=== PATIENT | female | born 1955 | race Caucasian/White ===

== ENCOUNTER 2017-07-17 10:57 | Outpatient (CLI) | payer OTHER | END 2017-07-17 10:58 | disposition home or self-care (01) | LOC: BICMAMMO 10:57 | PROVIDERS: ATTEND Family Medicine | DX: Z12.31 Encounter for screening mammogram for malignant neoplasm of breast (principal) | CPT/HCPCS: 77063; 77067 ==

== ENCOUNTER 2018-09-01 13:49 | Outpatient (CLI) | payer OTHER ==
--- NOTE | 2018-09-01 14:35 | ULT ---
Thyroid ultrasound: 09/01/2018 COMPARISON: 12/07/2012 HISTORY: Thyroid nodules TECHNIQUE: Multiplanar grayscale sonographic imaging of the thyroid gland obtained. FINDINGS: Thyroid isthmus measures 3 mm in AP dimension. The left lobe of the thyroid gland is surgic ally absent. The right lobe measures 3.5 x 2.1 x 1.2 cm. 3 thyroid nodules are noted within the right lobe of the thyroid gland, not discretely visualized on the prior examination. This includes a 9 x 7 x 10 mm heterogeneously hypoechoic solid nodule within the inferior aspect of the right lobe, a superior anterior cyst measuring 3 mm, and a heterogeneously hypoechoic nodule measuring approximately 4 mm. IMPRESSION: TI-RADS category 3, mildly suspicious. Given size of nodules less than 1.5 cm, no additio nal follow-up is required.
== END 2018-09-01 13:50 | disposition home or self-care (01) ==
LOC: BICULT 13:49
PROVIDERS: ATTEND Specialist
DX: E04.2 Nontoxic multinodular goiter (principal)
CPT/HCPCS: 36415; 76536; 84439; 84443; 84481

== ENCOUNTER 2019-11-01 14:38 | Outpatient (CLI) | payer MEDICARE ==
--- NOTE | 2019-11-01 15:15 | RAD ---
EXAM: XR Lumbar Spine 2 Or 3 View PROVIDED CLINICAL HISTORY: Lumbar disc disease, lumbar spondylosis. Patient complains of low back pain for 6 weeks. No known inj ury. COMPARISON: None FINDINGS: There are 5 nonrib-bearing lumbar-type vertebral bodies. There is mild right convex rotoscoliosis of the lumbar spine. Facet degenerative changes are seen on the left at the L4-5 level. The vertebral body heights are within normal limits. No fracture or subluxation is seen involving the lumbar spine. Vascular calcifications are seen overlying the upper abdomen. IMPRESSION: 1. Right convex scoliosis lumbar spine with facet degenerative changes lower lumbar spine. 2. No fracture or subluxation is seen.
--- NOTE | 2019-11-01 15:15 | RAD ---
Exam: 3 views of the sacroiliac joints HISTORY: Bilateral sacroiliitis. FINDINGS: Sacral joints are patent and symmetric. Visualized sacral ala are preserved. No fracture. IMPRESSION: No acute abnormality.
== END 2019-11-01 14:39 | disposition home or self-care (01) ==
LOC: BICRAD 14:38
PROVIDERS: ATTEND Family Medicine
DX: M46.1 Sacroiliitis, not elsewhere classified (principal); G89.4 Chronic pain syndrome; M51.9 Unspecified thoracic, thoracolumbar and lumbosacral intervertebral disc disorder; M47.816 Spondylosis without myelopathy or radiculopathy, lumbar region; M41.86 Other forms of scoliosis, lumbar region
CPT/HCPCS: 72100; 72202

== ENCOUNTER 2020-09-21 08:19 | Outpatient (CLI) | payer MEDICARE | END 2020-09-21 08:20 | LOC: CTENTCT 08:19 | PROVIDERS: ATTEND Specialist | DX: R43.1 Parosmia (principal) | CPT/HCPCS: 70486 ==